=== PATIENT | female | born 1980 | race Caucasian/White ===

== ENCOUNTER 2016-10-21 23:28 | Emergency (ER) | payer OTHER ==
[~2016-10-21] VITALS: Ht 170.2 cm; Wt 122.0 kg
[2016-10-21] MEDS ORDERED: TOBREX OPTH5 ML/BTL OD (23:58)
[2016-10-22 00:15] VITALS: BP 139/88
== END 2016-10-22 00:15 | disposition home or self-care (01) | DRG 125 ==
LOC: ED 23:28
DX: S05.01XA Injury of conjunctiva and corneal abrasion without foreign body, right eye, initial encounter (principal); X58.XXXA Exposure to other specified factors, initial encounter

== ENCOUNTER 2016-10-22 17:08 | Emergency (ER) | payer OTHER ==
[~2016-10-22] VITALS: Ht 170.2 cm; Wt 110.0 kg
[~2016-10-22 17:08] MED LIST: TOBREX OPTH5 ML/BTL OD
[2016-10-22 18:12] VITALS: BP 138/74
== END 2016-10-22 18:24 | disposition home or self-care (01) | DRG 950 ==
LOC: ED 17:08
DX: S05.01XD Injury of conjunctiva and corneal abrasion without foreign body, right eye, subsequent encounter (principal); H53.141 Visual discomfort, right eye; H53.8 Other visual disturbances; H57.11 Ocular pain, right eye